=== PATIENT | male | born 1985 | race Caucasian/White ===

== ENCOUNTER 2018-03-06 17:53 | Emergency (ER) | payer BC ==
[2018-03-06] MEDS ORDERED: Tetan/Diph/Pertus SYR(Tdap)* 0.5 ML SYR(BOOSTRIX) use SYR IM ONE (19:09)
[2018-03-06] MEDS ORDERED: Amoxicillin/Clavulanate TAB* 875 MG PO ONE (19:10)
[2018-03-06] MEDS ORDERED: Rabies Immune Globulin 2 ML* 150 UNITS/ML VIAL IM ONE (19:11)
[2018-03-06] MEDS ORDERED: Rabies Vaccine (RabAvert)* 2.5 UNITS VIAL IM ONE (19:11)
[2018-03-06 20:55] VITALS: BP 137/87
== END 2018-03-06 21:05 | disposition left against medical advice (07) ==
LOC: ED 17:53
DX: T14.8XXA Other injury of unspecified body region, initial encounter (principal); W54.0XXA Bitten by dog, initial encounter; Y92.9 Unspecified place or not applicable; Z53.21 Procedure and treatment not carried out due to patient leaving prior to being seen by health care provider